=== PATIENT | female | born 1960 | race Caucasian/White ===

== ENCOUNTER 2017-05-28 16:00 | Emergency (ER) | payer OTHER ==
[~2017-05-28] VITALS: Ht 175.3 cm; Wt 98.1 kg
[~2017-05-28 16:00] MED LIST: ACET-1311 PO
[2017-05-28 16:09] VITALS: TEMP 36.6; Ht 175.3 cm; Wt 98.1 kg
[2017-05-28] MEDS ORDERED: KETOROLAC TROMETHAMINE 30 MG/ML VIAL IV STA (16:24)
[2017-05-28] MEDS ORDERED: PROMETHAZINE HCL INJ 25 MG/ML 1 ML VIAL IV STA (16:24)
[2017-05-28] MEDS ORDERED: SODIUM CHLORIDE 0.9% 1000ML 1,000 ML IV STA ×2 (16:24)
--- NOTE | 2017-05-28 16:27 | EMERGENCY ROOM VISIT NOTE ---
History Report prepared by Delmis: Mandeep Tavera Under the Supervision of: Dr. Ariel Robertson M.D. First contact with patient: 16:19 Chief Complaint: ABDOMINAL PAIN Stated Complaint: STOMACH PAIN, BLOCKED STOMA, NAUSEA, VOMITING Nursing Triage Summary: History of Crohn's disease, Ileostomy History of Present Illness The patient is a 57 year old female who presents to the Emergency Room with complaints of persistent abdominal pain and vomiting that began yesterday. She rates her abdominal pain as an 8/10 in severity, and has experienced several vomiting episodes throughout the day. The patient has an ileostomy bag due to chronic Crohn's disease and prior strictures. She states that she has noticed a decreased output into the ileostomy bag over the past two days and believes there may be a blockage present. She denies any coughs, urinary irregularities, or fevers. 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 A total of 10 systems reviewed and were otherwise negative. Past Medical & Surgical Medical Problems: (1) Crohn's disease Surgical Problems: (1) History of colectomy (2) Hx of tubal ligation Family History Diabetes mellitus Kidney disease Kidney stones Seizures Social History Smoking Status: Never Smoker Alcohol Use: none Marital Status: Housing Status: lives with family Occupation Status: employed Current/Historical Medications Scheduled Acetaminophen (Tylenol), 325 MG PO prn Vedolizumab (Entyvio), 1 DOSE IV Q8WK Allergies Coded Allergies: No Known Allergies (Verified , 05/28/17) Physical Exam Vital Signs Date Time Temp Pulse Resp B/P (MAP) Pulse Ox O2 Delivery O2 Flow Rate FiO2 05/28/17 20:01 62 18 140/72 98 05/28/17 18:22 57 16 146/59 100 Room Air 05/28/17 16:09 36.6 70 20 135/82 98 Room Air Physical Exam GENERAL: Patient is in no acute distress. HEENT: No acute trauma, normocephalic atraumatic, mucous membranes moist, no nasal congestion, no scleral icterus. NECK: No stridor, no adenopathy, no meningismus, trachea is midline. LUNGS: Clear to auscultation bilaterally, no wheeze, no rhonchi, breath sounds equal. HEART: Without murmurs gallops or rubs, regular rate and rhythm. ABDOMEN: The abdomen is soft and very mildly diffusely tender. There is an Ostomy present in the right lower quadrant. There is air in the bag only, no peritonitis. EXTREMITIES: No cyanosis or edema, full range of motion of all the joints without pain or difficulty, no signs for acute trauma. NEUROLOGIC: Oriented x 3, no acute motor or sensory deficits, no focal weakness. SKIN: No rash, no jaundice, no diaphoresis. Medical Decision & Procedures ER Provider Diagnostic Interpretation: Radiology results as stated below per my review and radiologist interpretation: CT ABD/PELVIS IV CONTRAST ONLY CLINICAL HISTORY: Generalized abdominal pain, nausea, vomiting. COMPARISON STUDY: 01-20 TECHNIQUE: Following the IV administration of 118 mL of Optiray-320, CT scan of the abdomen and pelvis was performed from the lung bases to the proximal femurs. Images are reviewed in the axial, sagittal, and coronal planes. IV contrast was administered without complication. A dose lowering technique was utilized adhering to the principles of ALARA. CT DOSE: 934.42 mGy.cm FINDINGS: Lower chest: There are mild dependent atelectatic changes present. There are right lower lobe calcifications likely representing granulomas. Liver: The contrast-enhanced liver is normal in size, contour, and attenuation. There is no intrahepatic biliary ductal dilatation. The hepatic veins and portal veins are patent. Gallbladder: Unremarkable. Spleen: Normal in size and attenuation. Pancreas: Unremarkable. Adrenal glands: Unremarkable. Kidneys: There is left-sided hydronephrosis. There is left renal cortical scarring. There is a 3 mm left renal calculus versus cortical calcification. Bowel: There are postsurgical changes of a colectomy with a right lower quadrant ileostomy. There are mildly dilated distal ileal loops with a feces sign. There are areas of mild bowel wall thickening with minimal mesenteric edema. The findings are unlikely represent a bowel obstruction as the proximal small bowel is of normal caliber. This likely represents a nonspecific enteritis. The findings were reviewed with a fellow radiologist. A closed loop obstruction is not felt to be demonstrated on the current study. Peritoneum: There is trace peritoneal fluid. No free air is visualized Vasculature: The abdominal aorta is normal in course and caliber. Adenopathy: None. Pelvic viscera: There is air within the bladder likely iatrogenic. There are calcified uterine fibroids. Skeletal structures: No destructive osseous lesions are seen. IMPRESSION: 1. Postsurgical changes of a colectomy and right lower quadrant ileostomy 2. Left-sided hydronephrosis, and proximal hydroureter. Left-sided nephrolithiasis. Progressive left renal atrophy. 3. No evidence of bowel obstruction. No evidence of free air 4. Mildly dilated distal small bowel loops with a feces sign, mild bowel wall thickening, and minimal infiltration of the mesentery. The findings likely represent a nonspecific enteritis, with bowel stasis. 5. Air within the bladder likely iatrogenic 6. Calcified uterine fibroids Electronically signed by: Gus Elizabeth M.D. 05/28/2017 7:00 PM Dictated Date/Time: 05/28/2017 6:44 PM CHEST ONE VIEW PORTABLE CLINICAL HISTORY: Pain, radiating to the abdomen. Nausea, vomiting. COMPARISON STUDY: September 10, 2014 FINDINGS: The right-sided PICC catheter has been removed. The heart is normal in size. There is no failure. There is no focal pulmonary consolidation. There are no pleural effusions. There is no free intraperitoneal air.[ IMPRESSION: No active disease in the chest. Electronically signed by: Gus Elizabeth M.D. 05/28/2017 4:43 PM Dictated Date/Time: 05/28/2017 4:43 PM Laboratory Results 05/28/17 17:15 Red Blood Count 5.19, Mean Corpuscular Volume 90.8, Mean Corpuscular Hemoglobin 30.8, Mean Corpuscular Hemoglobin Concent 34.0, Mean Platelet Volume 9.8, Neutrophils (%) (Auto) 83.6, Lymphocytes (%) (Auto) 9.1, Monocytes (%) (Auto) 7.0, Eosinophils (%) (Auto) 0.1, Basophils (%) (Auto) 0.1, Neutrophils # (Auto) 7.18, Lymphocytes # (Auto) 0.78, Monocytes # (Auto) 0.60, Eosinophils # (Auto) 0.01, Basophils # (Auto) 0.01 05/28/17 17:15 Test 05/28/17 17:00 05/28/17 17:15 Urine Color DK YELLOW Urine Appearance CLEAR (CLEAR) Urine pH 5.5 (4.5-7.5) Urine Specific [place] 1.028 (1.000-1.030) Urine Protein 1+ (NEG) Urine Glucose (UA) NEG (NEG) Urine Ketones 1+ (NEG) Urine Occult Blood 2+ (NEG) Urine Nitrite NEG (NEG) Urine Bilirubin NEG (NEG) Urine Urobilinogen NEG (NEG) Urine Leukocyte Esterase TRACE (NEG) Urine WBC (Auto) 10-30 /hpf (0-5) Urine RBC (Auto) 0-4 /hpf (0-4) Urine Hyaline Casts (Auto) 1-5 /lpf (0-5) Urine Epithelial Cells (Auto) >30 /lpf (0-5) Urine Bacteria (Auto) NEG (NEG) White Blood Count 8.59 K/uL (4.8-10.8) Red Blood Count 5.19 M/uL (4.2-5.4) Hemoglobin 16.0 g/dL (12.0-16.0) Hematocrit 47.1 % (37-47) Mean Corpuscular Volume 90.8 fL (80-100) Mean Corpuscular Hemoglobin 30.8 pg (25-34) Mean Corpuscular Hemoglobin Concent 34.0 g/dl (32-36) Platelet Count 243 K/uL (130-400) Mean Platelet Volume 9.8 fL (7.4-10.4) Neutrophils (%) (Auto) 83.6 % Lymphocytes (%) (Auto) 9.1 % Monocytes (%) (Auto) 7.0 % Eosinophils (%) (Auto) 0.1 % Basophils (%) (Auto) 0.1 % Neutrophils # (Auto) 7.18 K/uL (1.4-6.5) Lymphocytes # (Auto) 0.78 K/uL (1.2-3.4) Monocytes # (Auto) 0.60 K/uL (0.11-0.59) Eosinophils # (Auto) 0.01 K/uL (0-0.5) Basophils # (Auto) 0.01 K/uL (0-0.2) RDW Standard Deviation 42.8 fL (36.4-46.3) RDW Coefficient of Variation 12.9 % (11.5-14.5) Immature Granulocyte % (Auto) 0.1 % Immature Granulocyte # (Auto) 0.01 K/uL (0.00-0.02) Anion Gap 8.0 mmol/L (3-11) Est Creatinine Clear Calc Drug Dose 72.0 ml/min Estimated GFR () 65.5 Estimated GFR (Non- 56.5 BUN/Creatinine Ratio 15.9 (10-20) Calcium Level 9.7 mg/dl (8.5-10.1) Total Bilirubin 0.7 mg/dl (0.2-1) Aspartate Amino Transf (AST/SGOT) 26 U/L (15-37) Alanine Aminotransferase (ALT/SGPT) 22 U/L (12-78) Alkaline Phosphatase 110 U/L (45-117) Total Protein 8.7 gm/dl (6.4-8.2) Albumin 4.1 gm/dl (3.4-5.0) Globulin 4.6 gm/dl (2.5-4.0) Albumin/Globulin Ratio 0.9 (0.9-2) Lipase 210 U/L (73-393) Laboratory results reviewed by me. Medications Administered Medications (Trade) Dose Ordered Sig/[place] Route Start Time Stop Time Status Last Admin Dose Admin Promethazine HCl (Phenergan Inj) 12.5 mg NOW STAT IV 05/28/17 16:24 05/28/17 16:26 DC 05/28/17 17:46 12.5 MG Sodium Chloride 1,000 ml @ 200 mls/hr Q5H STAT IV 05/28/17 16:24 05/28/17 21:14 DC 05/28/17 17:47 200 MLS/HR Sodium Chloride 1,000 ml @ 999 mls/hr Q1H1M STAT IV 05/28/17 16:24 05/28/17 17:24 DC 05/28/17 17:24 999 MLS/HR Morphine Sulfate (MoRPHine SULFATE INJ) 4 mg Q30M PRN IV 05/28/17 16:30 05/28/17 21:14 DC 05/28/17 17:47 4 MG Ketorolac Tromethamine (Toradol Inj) 30 mg NOW STAT IV 05/28/17 16:24 05/28/17 16:27 DC 05/28/17 17:47 30 MG Ondansetron HCl (ZOFRAN ODT 4MG Home Pack) 1 homepack UD ONCE PO 05/28/17 19:30 05/28/17 19:31 DC 05/28/17 19:58 1 HOMEPACK ED Course 162: The patient was evaluated in room C5. A complete history and physical exam was performed. 1623: Ordered Toradol 30 mg IV, Sodium Chloride 1000 mL @ 999 mL/hr IV, Sodium Chloride 1000 mL @ 200 mL/hr IV, Phenergan 12.5 mg IV. 1629: Ordered Morphine Sulfate 4 mg IV. 1917: I reevaluated the patient at this time. She is feeling better and there is increased drainage in her ileostomy bag. She would like to be discharged home. 1929: Ordered Zofran 1 homepack PO. Medical Decision Differential Diagnosis includes; bowel obstruction, dehydration, electrolyte imbalance, Crohn's flair, viral illness, infection, anemia. There is no leukocytosis or concerning anemia. No significant electrolyte abnormality, kidney failure or hepatitis. Chest x-ray does not show pneumonia or CHF. There is no free air. Abdominal CT shows some fecal stasis, no true bowel obstruction, no evidence for abscess. Urinalysis does not show infection. There was no evidence for pancreatitis. On exam, the patient did have some drainage from her ileostomy into her bag. The patient received IV saline, IV Toradol, IV morphine and IV Phenergan, she feels significantly improved. The patient has had increased drainage into her ileostomy bag since being in the emergency room. She feels improved significantly from when she arrived and would like to be discharged home. The patient is going to try some Miralax at home and will stay well-hydrated. She will stick to a bland diet. If she has difficulty with increasing symptoms or lack of ileostomy output, she will return for reassessment. 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 Impression Primary Impression: Dehydration Additional Impressions: Vomiting Ileus Scribe Attestation The scribe's documentation has been prepared under my direction and personally reviewed by me in its entirety. I confirm that the note above accurately reflects all work, treatment, procedures, and medical decision making performed by me. Departure Information Dispostion Home / Self-Care Referrals No Doctor, Assigned (PCP) Forms Call Back Authorization, HOME CARE DOCUMENTATION FORM, IMPORTANT VISIT INFORMATION Patient Instructions My [facility] Additional Instructions bland diet---crackers, soup, toast, gatorade use 1/2 of a glass of miralax to help get bowels moving zofran 1 tab every 6 hours for nausea rest stay well hydrated follow with richard md for a recheck return if worsening or not improving as we discussed 2 days off of work, today and tomorrow Problem Qualifiers
[2017-05-28] MEDS ORDERED: OPTIRAY 320 IV PRN (16:30)
[2017-05-28] MEDS ORDERED: MoRPHine SULFATE 4 MG/ML 1 ML CARP\\VIAL IV PRN (16:30)
--- NOTE | 2017-05-28 16:45 | DIAGNOSTIC IMAGING REPORT ---
CHEST ONE VIEW PORTABLE CLINICAL HISTORY: Pain, radiating to the abdomen. Nausea, vomiting. COMPARISON STUDY: September 10, 2014 FINDINGS: The right-sided PICC catheter has been removed. The heart is normal in size. There is no failure. There is no focal pulmonary consolidation. There are no pleural effusions. There is no free intraperitoneal air.[ IMPRESSION: No active disease in the chest. Electronically signed by: Gus Elizabeth M.D. 05/28/2017 4:43 PM Dictated Date/Time: 05/28/2017 4:43 PM
[2017-05-28] MEDS ORDERED: VEDO1INJ IV (17:22)
[2017-05-28 17:40] LABS: BASO % 0.1 %; BASO ABS # 0.01 K/uL (0-0.2); COMPLETE YES; EOS % 0.1 %; HEMATOCRIT 47.1 % (37-47); IG% 0.1 %; LYMPH % 9.1 %; LYMPH ABS # 0.78 K/uL (1.2-3.4); MEAN CELL VOLUME 90.8 fL (80-100); MEAN CORPUSCULAR HEMOGLOBIN 30.8 pg (25-34); MEAN PLATELET VOLUME 9.8 fL (7.4-10.4); NEUT % 83.6 %; PLATELET COUNT 243 K/uL (130-400); RED BLOOD COUNT 5.19 M/uL (4.2-5.4); WHITE BLOOD COUNT 8.59 K/uL (4.8-10.8)
[2017-05-28 17:49] LABS: URINE APPEARANCE CLEAR (CLEAR); URINE BILIRUBIN NEG (NEG); URINE COLOR DK YELLOW; URINE EPITHELIAL CELL AUTO >30 /lpf (0-5); URINE NITRITE NEG (NEG); URINE PH 5.5 (4.5-7.5); URINE SPECIFIC GRAVITY 1.028 (1.000-1.030); UROBILINOGEN NEG (NEG); ZZUR CULT IF INDIC CLEAN CATCH YES
[2017-05-28 17:54] LABS: MANUAL MICROSCOPIC REQUIRED? NO; REVIEW REQ? NO
[2017-05-28 17:59] LABS: BUN/CREATININE RATIO 15.9 (10-20); CALCIUM 9.7 mg/dl (8.5-10.1); CREATININE 1.1 mg/dl (0.60-1.20); POTASSIUM 3.8 mmol/L (3.5-5.1)
[2017-05-28 18:02] LABS: ALB/GLOB RATIO 0.9 (0.9-2)
--- NOTE | 2017-05-28 19:01 | DIAGNOSTIC IMAGING REPORT ---
CT ABD/PELVIS IV CONTRAST ONLY CLINICAL HISTORY: Generalized abdominal pain, nausea, vomiting. COMPARISON STUDY: 3-15 TECHNIQUE: Following the IV administration of 118 mL of Optiray-320, CT scan of the abdomen and pelvis was performed from the lung bases to the proximal femurs. Images are reviewed in the axial, sagittal, and coronal planes. IV contrast was administered without complication. A dose lowering technique was utilized adhering to the principles of ALARA. CT DOSE: 934.42 mGy.cm FINDINGS: Lower chest: There are mild dependent atelectatic changes present. There are right lower lobe calcifications likely representing granulomas. Liver: The contrast-enhanced liver is normal in size, contour, and attenuation. There is no intrahepatic biliary ductal dilatation. The hepatic veins and portal veins are patent. Gallbladder: Unremarkable. Spleen: Normal in size and attenuation. Pancreas: Unremarkable. Adrenal glands: Unremarkable. Kidneys: There is left-sided hydronephrosis. There is left renal cortical scarring. There is a 3 mm left renal calculus versus cortical calcification. Bowel: There are postsurgical changes of a colectomy with a right lower quadrant ileostomy. There are mildly dilated distal ileal loops with a feces sign. There are areas of mild bowel wall thickening with minimal mesenteric edema. The findings are unlikely represent a bowel obstruction as the proximal small bowel is of normal caliber. This likely represents a nonspecific enteritis. The findings were reviewed with a fellow radiologist. A closed loop obstruction is not felt to be demonstrated on the current study. Peritoneum: There is trace peritoneal fluid. No free air is visualized Vasculature: The abdominal aorta is normal in course and caliber. Adenopathy: None. Pelvic viscera: There is air within the bladder likely iatrogenic. There are calcified uterine fibroids. Skeletal structures: No destructive osseous lesions are seen. IMPRESSION: 1. Postsurgical changes of a colectomy and right lower quadrant ileostomy 2. Left-sided hydronephrosis, and proximal hydroureter. Left-sided nephrolithiasis. Progressive left renal atrophy. 3. No evidence of bowel obstruction. No evidence of free air 4. Mildly dilated distal small bowel loops with a feces sign, mild bowel wall thickening, and minimal infiltration of the mesentery. The findings likely represent a nonspecific enteritis, with bowel stasis. 5. Air within the bladder likely iatrogenic 6. Calcified uterine fibroids Electronically signed by: Gus Elizabeth M.D. 05/28/2017 7:00 PM Dictated Date/Time: 05/28/2017 6:44 PM
[2017-05-28] MEDS ORDERED: ONDANSETRON HOME PACK 4MG OD TAB PO ONE (19:30)
[2017-05-28 20:01] VITALS: BP 140/72; PULSE 62; O2SAT 98
== END 2017-05-28 20:00 | disposition home or self-care (01) ==
LOC: C.EDB 16:01 → C.EDC 20:00
DX: K56.7 Ileus, unspecified (principal); E86.0 Dehydration; R11.10 Vomiting, unspecified; Z93.2 Ileostomy status; K50.90 Crohn's disease, unspecified, without complications; Z90.49 Acquired absence of other specified parts of digestive tract; Z98.51 Tubal ligation status; Z83.3 Family history of diabetes mellitus; Z84.1 Family history of disorders of kidney and ureter; Z82.0 Family history of epilepsy and other diseases of the nervous system